=== PATIENT | male | born 1950 | race Caucasian/White ===

== ENCOUNTER 2017-04-24 13:26 | Emergency (ER) | payer BC ==
--- NOTE | 2017-04-24 13:28 | UC ---
Complaint Female HPI - HPI Summary HPI Summary: 66 year old male presents with complains of urinary retention. - History Of Current Complaint Stated Complaint: URINARY COMPLAINT Time Seen by Provider: 04/24/17 13:27 Hx Obtained From: Patient Onset/Duration: Sudden Onset Severity Initially: Moderate Severity Currently: Moderate - Allergies/Home Medications Allergies/Adverse Reactions: Allergies Allergy/AdvReac Type Severity Reaction Status Date / Time No Known Allergies Allergy Verified 04/24/17 13:36 Home Medications: Home Medications Aspirin EC Low Dose* [Ecotrin EC Low Dose 81 MG*] 81 mg PO QAM 04/24/17 [ History Confirmed 04/24/17] Cholecalciferol TAB* [Vitamin D TAB*] 4,000 units PO QAM 04/24/17 [History Confirmed 04/24/17] Ibuprofen TAB* [Advil TAB*] 400 mg PO Q6H PRN 04/24/17 [History Confirmed ] Lisinopril/HCTZ 03/13.5(NF) [Zestoretic 03/13.(NF)] 1 tab PO QAM 04/24/17 [ History Confirmed 04/24/17] Naproxen Sodium [Naproxen Sodium 220 mg] 220 mg PO Q12H PRN 04/24/17 [History Confirmed 04/24/17] Niacin (Antihyperlipidemic) [Niaspan] 1,500 mg PO QPM 04/24/17 [History Confirmed 04/24/17] Omeprazole CAP* [Prilosec CAP* 20 MG] 20 mg PO QAM 04/24/17 [History Confirmed 04/24/17] Rosuvastatin (NF) [Crestor (NF)] 20 mg PO QPM 04/24/17 [History Confirmed ] Sertraline* [Zoloft*] 50 mg PO QAM 04/24/17 [History Confirmed 04/24/17] Tamsulosin CAP* [Flomax CAP*] 0.4 mg PO DAILY 04/24/17 [History Confirmed ] Vitamin THERAPEUTIC TAB* [Theragran TAB*] 1 tab PO QAM 04/24/17 [History Confirmed 04/24/17] PMH/Surg Hx/FS Hx/Imm Hx Previously Healthy: Yes - Surgical History Surgical History: Yes Surgery Procedure, Year, and Place: HEART STENT 10/03. CYST REMOVED SPINAL CORD 2005 Review of Systems Constitutional: Negative Skin: Negative Eyes: Negative ENT: Negative Respiratory: Negative Cardiovascular: Negative Gastrointestinal: Negative Genitourinary: Urgency Motor: Negative Neurovascular: Negative Musculoskeletal: Negative Neurological: Negative Psychological: Negative All Other Systems Reviewed And Are Negative: Yes Physical Exam Triage Information Reviewed: Yes Vital Signs Reviewed: Yes Eye Exam: Normal ENT Exam: Normal Dental Exam: Normal Neck exam: Normal Neck: Positive: 1 Respiratory Exam: Normal Cardiovascular Exam: Normal Abdominal Exam: Normal Musculoskeletal Exam: Normal Neurological Exam: Normal Psychological Exam: Normal Skin Exam: Normal Complaint Female Dx - Differential Dx/Diagnosis Provider Diagnoses: urinary retention Discharge - Discharge Plan Condition: Stable Disposition: HOME Prescriptions: Ciprofloxacin TAB* [Cipro 500 MG TAB*] 500 mg PO BID #20 tab Patient Education Materials: Urinary Retention in Men (ED), Benign Prostatic Hypertrophy (ED) Referrals: Montez Garcia MD [Primary Care Provider] - Cecilio Deluna MD [Medical Doctor] -
[2017-04-24 13:46] VITALS: BP 111/72
== END 2017-04-24 14:15 | disposition home or self-care (01) ==
LOC: UCCORT 13:26
DX: R33.9 Retention of urine, unspecified (principal); Z95.5 Presence of coronary angioplasty implant and graft; Z79.82 Long term (current) use of aspirin
CPT/HCPCS: 81003; 87086; 99212; G0463